=== PATIENT | female | born 1980 | race Caucasian/White ===

== ENCOUNTER → 2018-05-02 | Emergency (ER) | payer OTHER ==
[~2018-05-02] VITALS: Ht 157.5 cm; Wt 70.3 kg
[~2018-05-02] MED LIST: BIOTIN1 M1 PO; LEVSIN0.125 MG PO; MELATIN3 MG; MULTI-DAY1 TAB PO; OMEGA 3 500 SO1 EACH PO; TRAM1TAB98 PO; TUMERSAID TABL1 EACH PO; [UNRECOGNIZED DRUG - OTHER] PO; [UNRECOGNIZED DRUG - OTHER] PO
== END | disposition home or self-care (01) ==
LOC: ER 21:18
DX: R07.89 Other chest pain (principal)

== ENCOUNTER 2018-12-17 07:48 | Outpatient (CLI) | payer OTHER | END 2018-12-17 17:00 | disposition home or self-care (01) | LOC: TOM 07:48 | DX: R51 Headache (principal) | CPT/HCPCS: 70552 ==

== ENCOUNTER 2020-02-05 07:36 | Outpatient (CLI) | payer OTHER | END 2020-02-05 07:50 | disposition home or self-care (01) | LOC: SONOGRAMA 07:36 | PROVIDERS: ATTEND General Practice | DX: R10.84 Generalized abdominal pain (principal) ==

== ENCOUNTER → 2020-11-30 | Outpatient (CLI) | payer OTHER | END | disposition home or self-care (01) | LOC: MAMO-SONO 12:06 | PROVIDERS: ATTEND General Practice | DX: N60.21 Fibroadenosis of right breast (principal); N60.22 Fibroadenosis of left breast; E06.1 Subacute thyroiditis; N94.89 Other specified conditions associated with female genital organs and menstrual cycle; N64.4 Mastodynia; Z12.31 Encounter for screening mammogram for malignant neoplasm of breast ==

== ENCOUNTER 2021-12-19 08:33 | Outpatient (CLI) | payer OTHER | END 2021-12-19 08:52 | disposition home or self-care (01) | LOC: MAMO-SONO 08:33 | PROVIDERS: ATTEND Obstetrics & Gynecology | DX: N64.59 Other signs and symptoms in breast (principal); N64.9 Disorder of breast, unspecified; N63.0 Unspecified lump in unspecified breast; N94.0 Mittelschmerz; R10.2 Pelvic and perineal pain; N94.89 Other specified conditions associated with female genital organs and menstrual cycle ==

== ENCOUNTER 2023-07-11 07:53 | Outpatient (CLI) | payer OTHER | END 2023-07-11 07:56 | disposition home or self-care (01) | LOC: SONOGRAMA 07:53 | PROVIDERS: ATTEND Pathology Anatomic Pathology & Clinical Pathology | DX: C73 Malignant neoplasm of thyroid gland (principal); R59.0 Localized enlarged lymph nodes ==